=== PATIENT | female | born 1955 | race Caucasian/White ===

== ENCOUNTER 2017-02-28 11:00 | Emergency (ER) | payer OTHER ==
[~2017-02-28] VITALS: Ht 154.9 cm; Wt 53.5 kg
[~2017-02-28 11:00] MED LIST: BENZ1LOZ37 MM; CARB15DR23 OTIC; CETI10CA PO; NAPR-260 PO; SODI75SP NASAL; SYN75 PO; TRAM50TA2 PO
[2017-02-28 11:01] VITALS: Ht 154.9 cm; Wt 53.5 kg
[2017-02-28] MEDS ORDERED: ALBUTEROL 0.5% (NEB) 2.5 MG/0.5 ML AMP INH STA (11:46)
[2017-02-28] MEDS ORDERED: SOD CHLORIDE 0.9% 1,000 ML IV STA (11:46)
[2017-02-28] MEDS ORDERED: KETOROLAC 15 MG INJ IV STA (11:46)
[2017-02-28 12:33] LABS: ADD SCAN DIFF NO
[2017-02-28 12:43] LABS: BASOPHILS % 0.4 % (0.0-2.0); EOSINOPHILS # 0.1 10^3/ul (0.0-0.5); EOSINOPHILS % 0.7 % (0.0-7.0); HEMATOCRIT 40.3 % (37.0-47.0); HEMOGLOBIN 13.5 g/dl (12.0-16.0); LYMPHOCYTES # 2.7 10^3/ul (0.8-2.9); LYMPHOCYTES % 24.7 % (15.0-51.0); MEAN CORPUSCULAR HEMOGLOBIN 28.9 pg (29.0-33.0); MEAN CORPUSCULAR HGB CONC 33.5 g/dl (32.0-37.0); MEAN CORPUSCULAR VOLUME 86.3 fl (82.0-101.0); MEAN PLATELET VOLUME 9.5 fl (7.4-10.4); MONOCYTES % 9.3 % (0.0-11.0); NEUTROPHILS % 64.4 % (39.0-77.0); PLATELET COUNT 513 10^3/UL (140-415); RED BLOOD COUNT 4.67 10^6/ul (4.20-5.40); RED CELL DISTRIBUTION WIDTH 12.5 % (11.5-14.5); WHITE BLOOD COUNT 10.9 10^3/ul (4.8-10.8)
[2017-02-28 12:45] LABS: ADD UMIC YES; URINE BILIRUBIN (Dip) NEGATIVE (NEGATIVE); URINE BLOOD (Dip) TRACE (NEGATIVE); URINE COLOR LT. YELLOW (YELLOW); URINE GLUCOSE (Dip) NEGATIVE (NEGATIVE); URINE KETONES (Dip) NEGATIVE (NEGATIVE); URINE LEUKOCYTE ESTERASE (Dip) 1+ (NEGATIVE); URINE NITRITE (Dip) NEGATIVE (NEGATIVE); URINE TOTAL PROTEIN (Dip) NEGATIVE (NEGATIVE); URINE UROBILINOGEN (Dip) 0.2 E.U./dL (0.1-1.0)
--- NOTE | 2017-02-28 12:52 | RADRPT ---
PROCEDURE: XR Chest. CLINICAL INDICATION: Abdominal pain TECHNIQUE: A single AP view of the chest was obtained. COMPARISON: Chest x-ray dated 07/08/2014 FINDINGS: The lungs are hyperinflated with coarsening of the interstitial markings. No focal airspace opacifi cation, pleural effusion or pneumothorax is seen. The cardiomediastinal silhouette is within normal limits for size. Calcifications are seen within the aortic arch. The osseous structures are unrem arkable. IMPRESSION: 1. Hyperinflation of the lungs chronic-appearing interstitial changes. No significant interval luciana nge. 2. Aortic atherosclerosis. RPTAT: HH .Colleen Luna MD, MD Date Time Electronically viewed and signed by .Colleen Luna MD, on 02/28/2017 12:51 .G/
[2017-02-28 12:58] LABS: ALBUMIN 4.3 g/dl (3.3-4.9); CHLORIDE 102 mmol/L (97-110)
[2017-02-28 12:59] LABS: POTASSIUM 3.9 mmol/L (3.5-5.1); SODIUM 139 mmol/L (135-144)
[2017-02-28 13:01] LABS: ALANINE AMINOTRANSFERASE 26 IU/L (13-69); ALKALINE PHOSPHATASE 107 IU/L (42-121); ANION GAP 17 (8-16); ASPARTATE AMINO TRANSFERASE 26 IU/L (15-46); BILIRUBIN,INDIRECT 0.3 mg/dl (0-1.1); BILIRUBIN,TOTAL 0.3 mg/dl (0.2-1.3); BLOOD UREA NITROGEN 14 mg/dl (7-20); CARBON DIOXIDE 24 mmol/L (21-31); CREATININE 0.64 mg/dl (0.44-1.00); GLUCOSE 105 mg/dl (70-220); TOTAL PROTEIN 8.2 g/dl (6.1-8.1)
[2017-02-28 13:02] LABS: CALCIUM 9.2 mg/dl (8.4-10.2)
[2017-02-28 13:07] LABS: BACTERIA,URINE RARE
[2017-02-28 13:13] LABS: TROPONIN-I < 0.012 ng/ml (0.00-0.12)
[2017-02-28] MEDS ORDERED: CEPH-443 PO (13:14)
[2017-02-28] MEDS ORDERED: IBUP400T22 PO (13:14)
[2017-02-28] MEDS ORDERED: ALBU8.5H3 INH (13:14)
[2017-02-28 13:32] VITALS: BP 126/73; PULSE 81; RESP 19; TEMP 98.8
--- NOTE | 2017-02-28 19:33 | ERD ---
ER Documentation Chief Complaint Date/Time DATE: 02/28/17 TIME: 19:28 Chief Complaint cough x 1 month HPI 61-year-old woman complains of cough 3-4 weeks and anterior chest pain with cough as well as nasal congestion and sore throat. She states she was diagnosed with bacterial pharyngitis about 2 weeks ago and treated with azithromycin. She denies calf or leg swelling, no rash, no exertional chest pain, no recent fevers or chills, no vomiting or diarrhea. ROS All systems reviewed and are negative except as per history of present illness. Medications Home Meds Active Scripts Ibuprofen* (Motrin*) 400 Mg Tab, 400 MG PO Q8 for PAIN AND/OR INFLAMMATION, #30 TAB Prov:JUDITH GOSS MD 02/28/17 Cephalexin* (Keflex*) 500 Mg Capsule, 500 MG PO TID for 7 Days, CAP Prov:JUDITH GOSS MD 02/28/17 Albuterol Sulfate* (Proair HFA*) 8.5 Gm Hfa.aer.ad, 2 PUFF INH Q6H Y for COUGH, #1 INHALER Prov:JUDITH GOSS MD 02/28/17 Carbamide Peroxide (Ear Wax Removal) 15 Ml Drops, 5-10 DROP OTIC BID, #1 BOTTLE Prov:BRYON RODNEY NP 03/16/16 Cetirizine Hcl* (Zyrtec*) 10 Mg Capsule, 10 MG PO DAILY, #10 TAB.CHEW Prov:BRYON RODNEY NP 03/16/16 Sodium Chloride/Sod Bicarb (Nasa Mist Saline [place]) 75 Ml [place], 2 SPRAYS NASAL BID, #1 BOTTLE Prov:BRYON RODNEY NP 03/16/16 Naproxen* (Naprosyn*) 500 Mg Tablet, 500 MG PO BID Y for PAIN AND/OR INFLAMMATION, #14 TAB Prov:LILIAN GRECO DO 01/19/16 Tramadol HCl (Tramadol HCl) 50 Mg Tablet, 50 MG PO Q8, #14 TAB Prov:LILIAN GRECO DO 01/19/16 Benzocaine/Menthol* (Chloraseptic* Sore Throat Lozenge) 1 Coco Lozenge, 1 COCO MM Q2H Y for SORE THROAT for 14 Days, LOZENGE Prov:BRYON RODNEY NP 12/08/15 Reported Medications Levothyroxine Sodium* (Synthroid*) 75 Mcg Tablet, 7 MCG PO DAILY 08/23/12 Allergies Allergies: Coded Allergies: No Known Allergy (Unverified , 01/19/16) PMhx/Soc Hypothyroidism History of Surgery: No Anesthesia Reaction: No Hx Neurological Disorder: No Hx Respiratory Disorders: Yes (HYPOTHYROIDISM) Hx Cardiac Disorders: No Hx Psychiatric Problems: No Hx Miscellaneous Medical Probl: Yes Hx Alcohol Use: No Hx Substance Use: No Hx Tobacco Use: No FmHx Family History: No diabetes Physical Exam Vitals Vital Signs Date Time Temp Pulse Resp B/P Pulse Ox O2 Delivery O2 Flow Rate FiO2 02/28/17 13:32 98.8 81 19 126/73 97 Room Air 02/28/17 12:17 65 20 96 21 02/28/17 11:01 99.3 66 18 128/90 94 Physical Exam GENERAL: Well-developed, well-nourished, appears dehydrated HEENT: Dry mucous membranes, pink conjunctiva, no cervical spine tenderness or step-off deformities, no goiter, no jaundice or icterus, extraocular movements intact without pain. No submandibular induration, and no pharyngeal erythema NEURO: Alert and oriented 3, cranial nerves II through XII intact bilaterally, pupils equal round reactive to light, no focal deficits or facial asymmetry, sensation intact distally Strength 5/5 in upper and lower extremities bilaterally CARDIAC: Regular rate and rhythm, no murmurs rubs or gallops LUNGS: Clear bilaterally no wheezing crackles or stridor ABDOMEN: Soft nontender, no guarding, no rigidity, no rebound, no psoas sign no obturator sign. Normoactive bowel sounds SKIN: Warm and dry to touch, no abrasions, contusions, or hematomas, no lacerations, no ecchymosis, no target lesions, and without ulcers EXTREMITIES: No clubbing cyanosis or edema, calves are bilaterally symmetrical, no Homans sign, no popliteal cord sign. Distal pulses equal and bilateral PSYCH: Normal affect without agitation or irritability Result Diagram: 02/28/17 1224 02/28/17 1224 Results 24 hrs Laboratory Tests Test 02/28/17 12:24 White Blood Count 10.910^3/ul Red Blood Count 4.6710^6/ul Hemoglobin 13.5g/dl Hematocrit 40.3% Mean Corpuscular Volume 86.3fl Mean Corpuscular Hemoglobin 28.9pg Mean Corpuscular Hemoglobin Concent 33.5g/dl Red Cell Distribution Width 12.5% Platelet Count 52318^3/UL Mean Platelet Volume 9.5fl Neutrophils % 64.4% Lymphocytes % 24.7% Monocytes % 9.3% Eosinophils % 0.7% Basophils % 0.4% Nucleated Red Blood Cells % 0.0/100WBC Neutrophils # 7.010^3/ul Lymphocytes # 2.710^3/ul Monocytes # 1.010^3/ul Eosinophils # 0.110^3/ul Basophils # 0.010^3/ul Nucleated Red Blood Cells # 0.010^3/ul Urine Color LT. YELLOW Urine Clarity CLEAR Urine pH 5.5 Urine Specific [place] <=1.005 Urine Ketones NEGATIVE Urine Nitrite NEGATIVE Urine Bilirubin NEGATIVE Urine Urobilinogen 0.2 E.U./dL Urine Leukocyte Esterase 1+ Urine Microscopic RBC 2-5/HPF Urine Microscopic WBC 2-5/HPF Urine Epithelial Cells OCCASIONAL Urine Bacteria RARE Urine Hemoglobin TRACE Urine Glucose NEGATIVE% Urine Total Protein NEGATIVE Sodium Level 139mmol/L Potassium Level 3.9mmol/L Chloride Level 102mmol/L Carbon Dioxide Level 24mmol/L Anion Gap 17 Blood Urea Nitrogen 14mg/dl Creatinine 0.64mg/dl Glucose Level 105mg/dl Calcium Level 9.2mg/dl Total Bilirubin 0.3mg/dl Direct Bilirubin 0.00mg/dl Indirect Bilirubin 0.3mg/dl Aspartate Amino Transf (AST/SGOT) 26IU/L Alanine Aminotransferase (ALT/SGPT) 26IU/L Alkaline Phosphatase 107IU/L Troponin I < 0.012ng/ml Total Protein 8.2g/dl Albumin 4.3g/dl Globulin 3.90g/dl Albumin/Globulin Ratio 1.10 Lipase 110U/L Current Medications Medications (Trade) Dose Ordered Sig/Emy Route PRN Reason Start Time Stop Time Status Last Admin Dose Admin Sodium Chloride (NS) 1,000 ml @ 1,000 mls/hr Q1H STAT IV 02/28/17 11:46 02/28/17 12:45 DC 02/28/17 12:21 Ketorolac Tromethamine (Toradol) 15 mg ONCE STAT IV 02/28/17 11:46 02/28/17 11:48 DC 02/28/17 12:34 Albuterol (Proventil 0.5% (Neb)) 10 mg ONCE STAT INH 02/28/17 11:46 02/28/17 11:48 DC 02/28/17 12:16 Procedures/MDM IV line was established patient was placed on air sampling and monitoring rhythm strip revealed a sinus rhythm at about 80 bpm with upright P and T waves. Patient was afebrile. I administered 1 L normal saline intravenously for dehydration, albuterol 10 mg via nebulizer, Toradol 50 mg IV with good response. One AP view of the chest performed, read by me reveals no acute infiltrates, normal mediastinum, sharp costophrenic and cardiac borders, no air under the diaphragm. Otherwise unremarkable chest x-ray. EKG performed, read by me: 79 bpm, normal sinus rhythm, normal axis, no acute ST segment changes, narrow QRS complex, with good R-wave progression in precordial leads. CBC was unremarkable, electrolytes were normal, liver function tests normal, troponin was negative. Urine analysis was concerning for early urinary tract infection. Although her UA should be repeated by her PMD as she has no genitourinary symptoms. Patient has had a cough for 3-4 weeks and was dehydrated despite a normal chest x-ray I will treat her as an outpatient with cephalexin as well as albuterol pump as needed for coughing she improved while here in the ED in both verbal and written recommendations and instructions were provided to her, which she understood. Differential diagnoses considered, included but not limited to acute coronary syndrome, pulmonary embolism, aortic dissection, abdominal aortic aneurysm, sepsis, stroke, meningitis, encephalitis, pneumonia, appendicitis, cholecystitis , bowel obstruction, pyelonephritis, nephrolithiasis, cystitis, as well as metabolic, hematologic, and electrolyte abnormalities. As well as abscess, cellulitis, fractures, and dislocations. Patient feels much better at this time, and vital signs are normal, symptoms have improved. I did give strict instructions to return to the ED if symptoms continue or worsen, patient will otherwise follow-up with primary care physician. Patient understood instructions and agreed to plan. Departure Diagnosis: Primary Impression: Bronchitis Additional Impression: Dehydration Condition: Good Patient Instructions: Bronchitis With Wheezing (Adult) JUDITH GOSS MD Feb 28, 2017 19:33
== END 2017-02-28 13:33 | disposition home or self-care (01) ==
LOC: FTE 11:00
DX: J20.9 Acute bronchitis, unspecified (principal); E03.9 Hypothyroidism, unspecified; E86.0 Dehydration
CPT/HCPCS: 36415; 71010; 80053; 81001; 83690; 84484; 85025; 93005; 94644; 96374; J1885; J7030; Z7502; Z7610; 81003

== ENCOUNTER 2017-12-17 12:37 | Emergency (ER) | END 2017-12-17 17:05 | disposition home or self-care (01) ==

== ENCOUNTER 2019-01-17 11:59 | Emergency (ER) | payer OTHER ==
[~2019-01-17] VITALS: Wt 53.1 kg
[~2019-01-17 11:59] MED LIST changes: +ALBU8.5H8 INH; +BEN25 PO; +CEPH-443 PO; +HC30CR25 TOP; +IBUP-1561 PO; +LEVO75TA84 PO; -NAPR-260 PO; +NAPR-985 PO; -SYN75 PO
[2019-01-17 12:02] VITALS: BP 163/80; PULSE 82; RESP 18
--- NOTE | 2019-01-17 13:03 | ERD ---
ER Documentation Chief Complaint Chief Complaint dysuria x 2 weeks HPI 63-year-old female with past medical history of hypothyroidism, osteoporotic porosis who presents with 2-week complaints of burning and itching while urinating as well as urinary frequency. States symptoms began after she came back from a trip back home to [facility]. She otherwise denies Cp, cough, fevers, chills, nausea vomiting, abdominal pain. She has not seen her primary provider for this complaint. Reports no at risk sexual behavior. ROS All systems reviewed and are negative except as per history of present illness. Medications Home Meds Active Scripts Sulfamethoxazole/Trimethoprim* (Bactrim Ds* Tablet) 1 Each Tablet, 1 TAB PO BID, #14 TAB Prov:RJ MILLER PA-C 01/17/19 Hydrocortisone* Topical (Hydrocortisone* Topical) 2.5%-28.3 Gm Cream..g., 1 APPLIC TOP BID, #1 TUB Prov:PAULINO CRANE PA-C 12/17/17 Diphenhydramine Hcl* (Benadryl*) 25 Mg Cap, 25 MG PO Q6, #30 CAP Prov:PAULINO CRANE PA-C 12/17/17 Ibuprofen* (Motrin*) 400 Mg Tab, 400 MG PO Q8 for PAIN AND/OR INFLAMMATION, #30 TAB Prov:JUDITH GOSS MD 02/28/17 Cephalexin* (Keflex*) 500 Mg Capsule, 500 MG PO TID for 7 Days, CAP Prov:JUDITH GOSS MD 02/28/17 Albuterol Sulfate* (Proair HFA*) 8.5 Gm Hfa.aer.ad, 2 PUFF INH Q6H PRN for COUGH, #1 INHALER Prov:JUDITH GOSS MD 02/28/17 Carbamide Peroxide (Ear Wax Removal) 15 Ml Drops, 5-10 DROP OTIC BID, #1 BOTTLE Prov:BRYON RODNEY NP 03/16/16 Cetirizine Hcl* (Zyrtec*) 10 Mg Capsule, 10 MG PO DAILY, #10 TAB.CHEW Prov:BRYON RODNEY NP 03/16/16 Sodium Chloride/Sod Bicarb (Nasa Mist Saline [place]) 75 Ml [place], 2 SPRAYS NASAL BID, #1 BOTTLE Prov:BRYON RODNEY NP 03/16/16 Naproxen* (Naprosyn*) 500 Mg Tablet, 500 MG PO BID PRN for PAIN AND/OR INFLAMMATION, #14 TAB Prov:LILIAN GRECO DO 01/19/16 Tramadol HCl (Tramadol HCl) 50 Mg Tablet, 50 MG PO Q8, #14 TAB Prov:LILIAN GRECO DO 01/19/16 Benzocaine/Menthol* (Chloraseptic* Sore Throat Lozenge) 1 Coco Lozenge, 1 COCO MM Q2H PRN for SORE THROAT for 14 Days, LOZENGE Prov:BRYON RODNEY Low [employer]MENT [employer]INEER 12/08/15 Reported Medications Levothyroxine Sodium* (Synthroid*) 75 Mcg Tablet, 7 MCG PO DAILY 08/23/12 Allergies Allergies: Coded Allergies: alendronate sodium (Verified Allergy, Intermediate, ITCHY AND RASHES, 12/17/17) gabapentin (Verified Allergy, Intermediate, ITCHY RASHES, 12/17/17) PMhx/Soc History of Surgery: No Anesthesia Reaction: No Hx Neurological Disorder: No Hx Respiratory Disorders: Yes (HYPOTHYROIDISM) Hx Cardiac Disorders: No Hx Psychiatric Problems: No Hx Miscellaneous Medical Probl: Yes (ARTHRITIS AND OESTEOPOROSIS) Hx Alcohol Use: No Hx Substance Use: No Hx Tobacco Use: No Smoking Status: Never smoker Physical Exam Vitals Vital Signs Date Temp Pulse Resp B/P (MAP) Pulse Ox O2 O2 Flow FiO2 Time Delivery Rate 01/17/19 98.9 82 18 163/80 100 12:02 (107) Physical Exam Const: No acute distress Head: Atraumatic Eyes: Normal Conjunctiva Resp: Clear to auscultation bilaterally Cardio: Regular rate and rhythm, no murmurs Abd: Soft, non tender, non distended. Normal bowel sounds Skin: No petechiae or rashes Back: No midline or flank tenderness Ext: No cyanosis, or edema Neur: Awake and alert Psych: Normal Mood and Affect Results 24 hrs Laboratory Tests Test 01/17/19 13:05 Urine Color STRAW Urine Clarity CLEAR Urine pH 6.0 Urine Specific [place] 1.006 Urine Ketones NEGATIVE mg/dL Urine Nitrite NEGATIVE mg/dL Urine Bilirubin NEGATIVE mg/dL Urine Urobilinogen NEGATIVE mg/dL Urine Leukocyte Esterase 1+ Neri/ul Urine Microscopic RBC 5 /HPF Urine Microscopic WBC 14 /HPF Urine Hemoglobin 2+ mg/dL Urine Glucose NEGATIVE mg/dL Urine Total Protein NEGATIVE mg/dl Procedures/MDM 63 yo F who presents with symptoms concerning for UTI/Pyelonephritis, no flank pain or CVAT to suggest pyelonephritis. No other symptoms or risk factors concerning for STI. -- UA positive Plan: Bactrim for uncomplicated UTI -- Departure Diagnosis: Primary Impression: Pyelonephritis Condition: Stable Additional Instructions: 6 RJ MILLER PA-C Jan 17, 2019 13:03 KIET GILLIAM DO Jan 20, 2019 20:15
[2019-01-17] MEDS ORDERED: SULF1TAB31 PO (14:05)
== END 2019-01-17 14:26 | disposition home or self-care (01) ==
LOC: FTE 11:59
DX: N12 Tubulo-interstitial nephritis, not specified as acute or chronic (principal); E03.9 Hypothyroidism, unspecified
CPT/HCPCS: 81001; Z7502; 99283